=== PATIENT | male | born 1935 | race Caucasian/White ===

== ENCOUNTER → 2017-02-10 | Outpatient (CLI) | payer MEDICARE, BC ==
[~2017-02-10] MED LIST: DOCU-168 PO; IBUP200C5 PO; MEGA RED PO; MULT-806 PO
--- NOTE | 2017-02-10 16:12 | DI ---
Indication: ITS.REASON: M54.2 CERVICALGIA neck and left arm pain for several weeks PROCEDURE: MRI CERVICAL SPINE W/O CONTRAS: Encounter: Initial Comparison: None Technique: Multiplanar multisequence MR imaging of the cervical spine was performed without contrast. Findings: Alignment of the cervical spine is straightened with loss of the normal lordosis. No acute fracture identified. Marrow signal intensity is normal. The cervical and visualized upper thoracic spinal cord signal intensity is within normal limits. The paraspinal soft tissues are unremarkable. Segmental analysis: C2-C3: Normal C3-C4: Degenerative facet and uncovertebral change with small disk bulge. No central canal stenosis. Mild right neural foraminal stenosis. No significant left neural foraminal narrowing. C4-C5: Degenerative uncovertebral and facet change on the right causing mild right foraminal stenosis. No central canal or left neural foraminal narrowing. C5-C6: Central disk osteophyte complex mildly effacing the thecal sac with mild central canal narrowing. Degenerative uncovertebral and facet changes resulting in severe right and moderate left neural foraminal stenosis. C6-C7: Small central bulge without central canal stenosis. Degenerative uncovertebral disease on the right causing moderate foraminal stenosis. Mild left foraminal narrowing. C7-T1: Normal Impression: Degenerative changes with areas of central canal and neural foraminal narrowing as above. .
== END ==
LOC: IMA 14:23
PROVIDERS: ATTEND Family Medicine Geriatric Medicine
DX: M47.892 Other spondylosis, cervical region (principal); M25.78 Osteophyte, vertebrae; M50.223 Other cervical disc displacement at C6-C7 level